=== PATIENT | male | born 1965 | race Caucasian/White ===

== ENCOUNTER 2017-02-16 18:17 | Emergency (ER) | payer BC ==
[2017-02-16 17:59] LABS: WBC (NOT ORDERED) (RFLEX) 0 (0-5)
[2017-02-16 18:00] LABS: A/G RATIO 0.8 (0.7-1.9); ALBUMIN 3.8 G/DL (3.5-5.0); CALCIUM, SERUM 9.7 MG/DL (8.5-10.4); CHLORIDE, SERUM 104 MMOL/L (96-112); CO2 (CARBON DIOXIDE) 25 MMOL/L (24-34); CREATININE 1.01 MG/DL (0.70-1.30); GFR AFRICAN AMERICAN 100 ML/MIN (>=60); GFR NON AFRICAN AMERICAN 86 ML/MIN (>=60); GLOBULIN 4.5 G/DL (2.5-4.1); SGOT(AST) 22 U/L (5-40); SGPT(ALT) 37 U/L (5-65); SODIUM, SERUM 140 MMOL/L (135-148); TOTAL PROTEIN 8.3 G/DL (6.0-8.5)
[2017-02-16 18:02] LABS: ALKALINE PHOSPHATASE 117 U/L (45-117); BUN (BLOOD UREA NITROGEN) 25 MG/DL (6-23); GLUCOSE, SERUM 117 MG/DL (60-99); POTASSIUM, SERUM 3.3 MMOL/L (3.5-5.3); TOTAL BILIRUBIN 1.5 MG/DL (0-1.2)
[2017-02-16 18:08] LABS: ASCORBIC ACID (UR NOT ORDER) 20 (NEG); BILIRUBIN, URINE SMALL (NEG); ER URINALYSIS TAT 0 Hrs 10 Mins; KETONE, URINE 20 MG/DL (NEG); LEUKOCYTE ESTERASE(NOT OR NEG (NEG); NITRITE (URINE) NEG (NEG)
[~2017-02-16 18:17] MED LIST: ALEVE220 MG PO; FLEX PO; NEXIUM40 PO; NORCO1 TA1 PO
[2017-02-16 18:24] LABS: HEMOGLOBIN 18.5 g/dL (13.6-17.8); MEAN CORPUS HGB CONC 36.4 g/dL (32.0-36.0); MEAN CORPUSCULAR HEMOGLOB 31.3 pg (26.0-34.0); MEAN PLATELET VOLUME 9.8 fL (9.2-13.0); PLATELET COUNT 228 10/3/uL (150-400); RBC DISTRIBUTION WIDTH 12.7 % (12.0-16.0); RED CELL COUNT 5.91 10/6/uL (4.7-6.1); WHITE BLOOD CELLS 7.8 10/3/uL (4.5-10.5)
[2017-02-16 18:40] LABS: ER CBC TAT 0 Hrs 44 Mins
[2017-02-16 18:41] LABS: HEMATOCRIT 50.8 % (40.0-51.0); MANUAL DIFF YES %
[2017-02-16 18:46] LABS: BAND NEUTROPHILS 47 %; EOSINOPHILS 1 %; EOSINOPHILS ABSOLUTE (CALC) 0.08 10/3/uL (0.0-0.53); ER DIFF TAT 1 Hrs 06 Mins; LYMPHOCYTES 21 %; LYMPHOCYTES ABSOLUTE (CALC) 1.64 10/3/uL (0.67-4.30); MONOCYTES 20 %; MONOCYTES ABSOLUTE (CALC) 1.56 10/3/uL (0.21-1.20); NEUTROPHILS ABSOLUTE (CALC) 4.52 10/3/uL (2.02-8.40); PLATELET ESTIMATE ADQ (ADEQUATE); RBC MORPHOLOGY NORM (NORMAL); SEGMENTED NEUTROPHIL (0) 11 %; TOTAL NUCLEATED CELLS 100
== END 2017-02-16 21:45 | disposition home or self-care (01) ==
LOC: ER 18:17
PROVIDERS: Emergency Medicine
DX: E86.0 Dehydration (principal); R11.2 Nausea with vomiting, unspecified; R19.7 Diarrhea, unspecified; R10.84 Generalized abdominal pain; K21.9 Gastro-esophageal reflux disease without esophagitis; Z79.899 Other long term (current) drug therapy
CPT/HCPCS: 36415; 74176; 80053; 81001; 83690; 85025; 86850; 86900; 86901; 93005; 96374; 99284; A9270-GY; J2405